=== PATIENT | female | born 1980 | race Asian ===

== ENCOUNTER 2022-07-09 22:26 | Inpatient (IN) | payer BC, MEDICAID ==
[~2022-07-09] VITALS: Ht 154.9 cm; Wt 67.6 kg
[2022-07-09 22:52] VITALS: BP_SYST 130
[2022-07-09] MEDS ORDERED: ONDANSETRON HCL 4 MG/2 ML VIAL IVP ONE (23:15)
[2022-07-09] MEDS ORDERED: NACL 0.9% 1,000 ML IV ONE (23:15)
[2022-07-09 23:31] LABS: BASOPHILS % (AUTO) 0.2 % (0.0-2.0); HEMATOCRIT 46.5 % (36-48); HEMOGLOBIN 15.2 g/dL (12.0-16.0); LYMPHOCYTES # (AUTO) 0.6 K/uL (1.0-5.5); LYMPHOCYTES % (AUTO) 3.9 % (20.5-51.5); MEAN CORPUSCULAR HEMOGLOBIN 28 pg (27-31); MEAN CORPUSCULAR HGB CONC 33 % (32-36); MEAN CORPUSCULAR VOLUME 87 fL (79.0-98.0); MONOCYTES # (AUTO) 0.4 K/uL (0.0-1.0); MONOCYTES % (AUTO) 2.7 % (1.7-9.3); NEUTROPHILS % (AUTO) 93.2 % (40.0-70.0); PLATELET COUNT (AUTO) 373 K/uL (130-430); RED BLOOD CELL COUNT(AUTO) 5.37 MIL/uL (4.2-6.2); WHITE BLOOD COUNT (AUTO) 16.1 K/uL (4.8-10.8)
[2022-07-10] VITALS (20 sets, daily range): BP systolic 99–150
[2022-07-10 00:03] LABS: CALCIUM 8.7 mg/dL (8.4-11.0); CREATININE 1.29 mg/dL (0.55-1.30)
[2022-07-10 00:08] LABS: ALBUMIN 3.9 g/dL (3.4-4.8); TOTAL BILIRUBIN 0.4 mg/dL (0.0-1.0)
[2022-07-10] MEDS ORDERED: LR 1,000 ML IV ONE ×2 (00:45)
[2022-07-10] MEDS ORDERED: INSULIN REGULAR, HUMAN 100 UNITS in NS 99 ML IV PRN ×2 (01:00)
[2022-07-10] MEDS ORDERED: DEXTROSE 50% JECT 50 ML DISP.SYRIN IVP PRN ×2 (01:00→02:00)
[2022-07-10] MEDS ORDERED: POTASSIUM CHLORIDE 40 MEQ in D5W 250 ML IV ONE (01:00)
[2022-07-10] MEDS ORDERED: cefTRIAXone 1 GM in D5W 50 ML IV ONE (01:00)
[2022-07-10 01:02] LABS: BILIRUBIN,URINE 1+ (NEGATIVE); BLOOD, URINE 1+ (NEGATIVE); CLARITY/URINE SL CLOUDY (CLEAR); COLOR,URINE YELLOW (YELLOW); GLUCOSE,URINE 3+ (NEGATIVE); KETONES,URINE 3+ (NEGATIVE); LEUKOCYTE ESTERASE ,URINE 1+ (NEGATIVE); NITRITE, URINE NEGATIVE (NEGATIVE); PH,URINE 5.5 (5.0-8.0); PROTEIN URINE NEGATIVE (NEGATIVE); UROBILINOGEN,URINE 0.2 (0.2-1.0)
[2022-07-10 01:35] LABS: BACTERIA,URINE MODERATE /HPF (None Seen); WBC,URINE 20-50 /HPF (0-3)
[2022-07-10 02:28] LABS: PHOSPHORUS 4.6 mg/dL (2.7-4.5)
[2022-07-10] MEDS ORDERED: cefTRIAXone 1 GM VIAL ONE (03:21)
[2022-07-10] MEDS ORDERED: KCL 20 mEq in 100 mL (PREMIX) 100 ML IV ONE (03:23)
[2022-07-10] MEDS: INSULIN REGULAR, HUMAN 100 UNITS in NS 99 ML IV PRN ×4 (04:32→06:52)
[2022-07-10] MEDS ORDERED: EMPA25TA PO (06:11)
[2022-07-10] MEDS ORDERED: LOSA100T4 PO (06:11)
[2022-07-10] MEDS ORDERED: NOR10 PO (06:11)
[2022-07-10] MEDS ORDERED: METO25TA3 PO (06:11)
[2022-07-10 07:17] LABS: BASOPHILS % (AUTO) 0.1 % (0.0-2.0); HEMATOCRIT 41.4 % (36-48); HEMOGLOBIN 13.6 g/dL (12.0-16.0); LYMPHOCYTES # (AUTO) 1.2 K/uL (1.0-5.5); LYMPHOCYTES % (AUTO) 8.2 % (20.5-51.5); MEAN CORPUSCULAR HEMOGLOBIN 28 pg (27-31); MEAN CORPUSCULAR HGB CONC 33 % (32-36); MEAN CORPUSCULAR VOLUME 86 fL (79.0-98.0); MONOCYTES # (AUTO) 1.1 K/uL (0.0-1.0); MONOCYTES % (AUTO) 7.3 % (1.7-9.3); NEUTROPHILS # (AUTO) 12.3 K/uL (1.8-7.7); NEUTROPHILS % (AUTO) 84.4 % (40.0-70.0); PLATELET COUNT (AUTO) 342 K/uL (130-430); RED BLOOD CELL COUNT(AUTO) 4.81 MIL/uL (4.2-6.2); RED CELL DISTRIBUTION WIDTH 13.8 % (9.0-15.0); WHITE BLOOD COUNT (AUTO) 14.5 K/uL (4.8-10.8)
[2022-07-10 07:55] LABS: ALBUMIN 3.3 g/dL (3.4-4.8); CALCIUM 7.9 mg/dL (8.4-11.0); CREATININE 0.93 mg/dL (0.55-1.30); TOTAL BILIRUBIN 0.4 mg/dL (0.0-1.0)
[2022-07-10] MEDS ORDERED: NALOXONE HCL 0.4 MG/ML AMP (NARCAN) IVP PRN ×2 (08:00)
[2022-07-10] MEDS ORDERED: DOCUSATE SODIUM 100 MG CAPSULE PO PRN (08:00)
[2022-07-10] MEDS ORDERED: MAGNESIUM SULFATE 50 ML IV PRN (08:00)
[2022-07-10] MEDS ORDERED: ZOLPIDEM TARTRATE 5 MG TABLET PO PRN (08:00)
[2022-07-10] MEDS ORDERED: MORPHINE 2 MG/ML INJ. SYRINGE IVP PRN ×2 (08:00)
[2022-07-10] MEDS ORDERED: MUPIROCIN 2% TOPICAL OINTMENT 22 GM NS PRN (08:00)
[2022-07-10] MEDS ORDERED: POTASSIUM CHLORIDE 20 MEQ TAB.PRT.SR PO PRN (08:00)
[2022-07-10] MEDS ORDERED: LORazepam 2 MG/ML VIAL IVP PRN (08:00)
[2022-07-10] MEDS: NACL 0.9% 1,000 ML IV SCH ×4 (08:15→21:18)
[2022-07-10 10:38] LABS: CALCIUM 7.7 mg/dL (8.4-11.0); CREATININE 0.87 mg/dL (0.55-1.30)
[2022-07-10] MEDS: PIPERACILLIN/TAZO 3.375/DEX-IS 50 ML IV SCH ×3 (11:20→23:51)
[2022-07-10] MEDS: ONDANSETRON HCL 4 MG/2 ML VIAL IVP PRN (15:30)
[2022-07-10 15:52] LABS: CALCIUM 7.1 mg/dL (8.4-11.0); CREATININE 0.86 mg/dL (0.55-1.30)
[2022-07-10] MEDS ORDERED: INSULIN GLARGINE 100 UNITS/ML, 10 ML VIAL SUBCUT ONE (18:00)
[2022-07-10] MEDS ORDERED: INSULIN LISPRO SLIDING SCALE 100 UNITS/ML, 3 ML VIAL (humaLOG) SUBCUT PRN (18:00)
[2022-07-10 18:40] LABS: CALCIUM 7.1 mg/dL (8.4-11.0); CREATININE 0.87 mg/dL (0.55-1.30)
[2022-07-10] MEDS: CALCIUM CARBONATE 500 MG/ TAB.CHEW PO SCH (21:18)
[2022-07-11] VITALS (22 sets, daily range): BP systolic 118–154
[2022-07-11] MEDS: NACL 0.9% 1,000 ML IV SCH ×3 (01:11→10:22)
[2022-07-11] MEDS: ONDANSETRON HCL 4 MG/2 ML VIAL IVP PRN ×2 (03:11→10:15)
[2022-07-11 05:10] LABS: HEMATOCRIT 46.3 % (36-48); HEMOGLOBIN 14.4 g/dL (12.0-16.0); LYMPHOCYTES # (AUTO) 0.8 K/uL (1.0-5.5); LYMPHOCYTES % (AUTO) 4.6 % (20.5-51.5); MEAN CORPUSCULAR HEMOGLOBIN 28 pg (27-31); MEAN CORPUSCULAR HGB CONC 31 % (32-36); MEAN CORPUSCULAR VOLUME 89 fL (79.0-98.0); MONOCYTES # (AUTO) 0.7 K/uL (0.0-1.0); MONOCYTES % (AUTO) 3.9 % (1.7-9.3); NEUTROPHILS # (AUTO) 16.9 K/uL (1.8-7.7); NEUTROPHILS % (AUTO) 91.5 % (40.0-70.0); PLATELET COUNT (AUTO) 367 K/uL (130-430); RED BLOOD CELL COUNT(AUTO) 5.18 MIL/uL (4.2-6.2); RED CELL DISTRIBUTION WIDTH 14.7 % (9.0-15.0); WHITE BLOOD COUNT (AUTO) 18.5 K/uL (4.8-10.8)
[2022-07-11] MEDS: PIPERACILLIN/TAZO 3.375/DEX-IS 50 ML IV SCH (05:29)
[2022-07-11 05:34] LABS: CALCIUM 7.4 mg/dL (8.4-11.0); CREATININE 0.92 mg/dL (0.55-1.30)
[2022-07-11] MEDS ORDERED: METOCLOPRAMIDE HCL 10 MG/2 ML VIAL IVP PRN (06:00)
[2022-07-11 07:35] LABS: PROTHROMBIN TIME 10.1 SECS (9.5-12.5)
[2022-07-11] MEDS: CALCIUM CARBONATE 500 MG/ TAB.CHEW PO SCH ×2 (09:00→22:01)
[2022-07-11] MEDS ORDERED: INSULIN GLARGINE 100 UNITS/ML, 10 ML VIAL SUBCUT SCH (09:00)
[2022-07-11 10:06] LABS: CALCIUM 7.1 mg/dL (8.4-11.0); CREATININE 1.05 mg/dL (0.55-1.30)
[2022-07-11 10:27] LABS: PHOSPHORUS 2.5 mg/dL (2.7-4.5)
[2022-07-11] MEDS ORDERED: NACL 0.9% 2,000 ML IV SCH (10:45)
[2022-07-11] MEDS ORDERED: NACL 0.9% 2,000 ML IV ONE (11:15)
[2022-07-11 13:24] LABS: ALANINE AMINOTRANSFERASE 32 U/L (12-78); ALBUMIN 3.3 g/dL (3.4-4.8); ANION GAP 30 (5-15); BILIRUBIN,DIRECT 0.1 mg/dL (0.0-0.3); CHLORIDE 114 mmol/L (98-107); CREATININE 1.02 mg/dL (0.55-1.30); GFR AFRICAN AMERICAN 77 mL/min (>90); GLUCOSE 232 mg/dL (70-99); PHOSPHORUS 2.5 mg/dL (2.7-4.5); TOTAL BILIRUBIN 0.3 mg/dL (0.0-1.0); UREA NITROGEN, BLOOD 15 mg/dL (8-21)
[2022-07-11 13:31] LABS: ASPARTATE AMINOTRANSFERASE 32 U/L (10-37)
[2022-07-11] MEDS: INSULIN REGULAR, HUMAN 100 UNITS in NS 99 ML IV PRN ×2 (13:50)
[2022-07-11 13:58] LABS: LIPASE 3251 U/L (73-393)
[2022-07-11 13:59] LABS: AMYLASE 729 U/L (0-100)
[2022-07-11] MEDS ORDERED: SODIUM BICARBONATE 8.4% JECT 50 MEQ/50 ML SYRINGE IVP ONE (14:00)
[2022-07-11] MEDS ORDERED: NACL 0.9% 1,000 ML IV ONE (14:00)
[2022-07-11] MEDS: 0.45% NACL 1,000 ML IV SCH ×3 (14:13→22:00)
[2022-07-11] MEDS: metroNIDAZOLE 500 mg/NS 100 ML IV SCH ×2 (14:17→22:03)
[2022-07-11] MEDS: ACETAMINOPHEN 325 MG TABLET PO PRN ×2 (16:44→22:06)
[2022-07-11] MEDS ORDERED: VANCOMYCIN HCL 1 GM/NS PREMIX 250 ML IV ONE (21:00)
[2022-07-11 22:15] LABS: CREATININE 1.03 mg/dL (0.55-1.30); PHOSPHORUS 2.3 mg/dL (2.7-4.5)
[2022-07-12] VITALS (34 sets, daily range): BP systolic 93–168
[2022-07-12] MEDS: 0.45% NACL 1,000 ML IV SCH ×2 (02:00→05:26)
[2022-07-12] MEDS ORDERED: LORazepam 2 MG/ML VIAL IVP ONE (02:30)
[2022-07-12] MEDS ORDERED: SODIUM BICARBONATE 8.4% JECT 50 MEQ/50 ML SYRINGE IVP ONE ×4 (02:30→15:00)
[2022-07-12] MEDS ORDERED: SODIUM BICARBONATE 8.4% JECT 50 MEQ/50 ML SYRINGE ONE ×2 (02:30→02:44)
[2022-07-12] MEDS ORDERED: fentaNYL CITRATE/PF 100 MCG/2 ML AMP IVP ONE (02:30)
[2022-07-12] MEDS ORDERED: PROPOFOL DRIP 100 ML IV ONE (02:51)
[2022-07-12 05:31] LABS: HEMATOCRIT 43.9 % (36-48); HEMOGLOBIN 13.1 g/dL (12.0-16.0); MEAN CORPUSCULAR HEMOGLOBIN 27 pg (27-31); MEAN CORPUSCULAR HGB CONC 30 % (32-36); MEAN CORPUSCULAR VOLUME 92 fL (79.0-98.0); PLATELET COUNT (AUTO) 366 K/uL (130-430); RED CELL DISTRIBUTION WIDTH 15.4 % (9.0-15.0); WHITE BLOOD COUNT (AUTO) 27.2 K/uL (4.8-10.8)
[2022-07-12 06:05] LABS: CREATININE 1.1 mg/dL (0.55-1.30); PHOSPHORUS 4.5 mg/dL (2.7-4.5)
[2022-07-12] MEDS: metroNIDAZOLE 500 mg/NS 100 ML IV SCH (06:24)
[2022-07-12] MEDS: CALCIUM CARBONATE 500 MG/ TAB.CHEW PO SCH ×2 (08:04→20:59)
[2022-07-12] MEDS: PROPOFOL DRIP 100 ML IV PRN ×3 (08:15→23:46)
[2022-07-12 09:28] LABS: BAND % (MANUAL) 14 % (0-6); BASOPHILS % (MANUAL) 0 % (0-2); EOSINOPHILS % (MANUAL) 0 % (0-7); LYMPHOCYTES % (MANUAL) 4 % (20-46); METAMYELOCYTES % 2 % (0-0); MONOCYTES % (MANUAL) 10 % (0-11)
[2022-07-12] MEDS ORDERED: ETOMIDATE 20 MG/ 10 ML VIAL (AMIDATE) IVP ONE (10:04)
[2022-07-12] MEDS ORDERED: SUCCINYLCHOLINE CHLORIDE 20 MG/ML(QUELICIN) IVP ONE (10:04)
[2022-07-12 10:27] LABS: CREATININE 1.25 mg/dL (0.55-1.30); PHOSPHORUS 3.2 mg/dL (2.7-4.5)
[2022-07-12 10:31] LABS: CALCIUM 6.6 mg/dL (8.4-11.0)
[2022-07-12] MEDS ORDERED: KCL 40 mEq in 100 mL (PREMIX) 100 ML IV ONE (10:45)
[2022-07-12] MEDS: D5/0.45 NS 1,000 ML IV SCH ×3 (11:09→20:59)
[2022-07-12] MEDS ORDERED: CALCIUM GLUCONATE 1 GM in NS 100 ML IV ONE (12:00)
[2022-07-12] MEDS: ACETAMINOPHEN 325 MG TABLET PO PRN (14:05)
[2022-07-12] MEDS ORDERED: MEROPENEM 1 GM in NS 100 ML IV ONE (15:30)
[2022-07-12] MEDS: FLUCONAZOLE 200 mg/ NS 100 ML IV SCH (16:14)
[2022-07-12] MEDS: VANCOMYCIN HCL 1,000 MG in NS 250 ML IV SCH (18:44)
[2022-07-12 19:44] LABS: CALCIUM 7.2 mg/dL (8.4-11.0); CREATININE 1.46 mg/dL (0.55-1.30)
[2022-07-12 19:53] LABS: PHOSPHORUS 0.5 mg/dL (2.7-4.5)
[2022-07-12] MEDS: INSULIN REGULAR, HUMAN 100 UNITS in NS 99 ML IV PRN ×4 (20:24→23:50)
[2022-07-12] MEDS: MEROPENEM 1 GM in NS 100 ML IV SCH (21:00)
[2022-07-12] MEDS ORDERED: K PHOS 40 MM in NS 250 ML IV ONE (21:15)
[2022-07-12] MEDS ORDERED: MEROPENEM 1 GM VIAL IV ONE (21:32)
[2022-07-12] MEDS ORDERED: POTASSIUM CHLORIDE 40 MEQ in NS 250 ML IV PRN (22:00)
[2022-07-13] VITALS (35 sets, daily range): BP systolic 85–138
[2022-07-13] MEDS: D5/0.45 NS 1,000 ML IV SCH (01:51)
[2022-07-13 06:04] LABS: ALBUMIN 2.2 g/dL (3.4-4.8); CREATININE 1.28 mg/dL (0.55-1.30); PHOSPHORUS 1.3 mg/dL (2.7-4.5); TOTAL BILIRUBIN 0.3 mg/dL (0.0-1.0)
[2022-07-13 06:25] LABS: CALCIUM 6.6 mg/dL (8.4-11.0)
[2022-07-13] MEDS: MEROPENEM 1 GM in NS 100 ML IV SCH ×3 (06:40→21:10)
[2022-07-13] MEDS: INSULIN REGULAR, HUMAN 100 UNITS in NS 99 ML IV PRN ×4 (06:43→08:49)
[2022-07-13] MEDS ORDERED: KCL 40 mEq in 100 mL (PREMIX) 100 ML IV ONE (06:45)
[2022-07-13] MEDS ORDERED: K PHOS 40 MM in NS 250 ML IV ONE ×2 (06:45→19:00)
[2022-07-13] MEDS ORDERED: CALCIUM GLUCONATE 1 GM in NS 100 ML IV ONE ×3 (06:45→18:15)
[2022-07-13 07:30] LABS: BASOPHILS % (AUTO) 0.1 % (0.0-2.0); EOSINOPHILS % (AUTO) 0.1 % (0.0-4.0); HEMATOCRIT 36.1 % (36-48); HEMOGLOBIN 11.9 g/dL (12.0-16.0); LYMPHOCYTES # (AUTO) 0.9 K/uL (1.0-5.5); LYMPHOCYTES % (AUTO) 8.4 % (20.5-51.5); MEAN CORPUSCULAR HEMOGLOBIN 28 pg (27-31); MEAN CORPUSCULAR HGB CONC 33 % (32-36); MEAN CORPUSCULAR VOLUME 85 fL (79.0-98.0); MONOCYTES # (AUTO) 1.4 K/uL (0.0-1.0); MONOCYTES % (AUTO) 12.9 % (1.7-9.3); NEUTROPHILS # (AUTO) 8.3 K/uL (1.8-7.7); PLATELET COUNT (AUTO) 243 K/uL (130-430); RED BLOOD CELL COUNT(AUTO) 4.27 MIL/uL (4.2-6.2); RED CELL DISTRIBUTION WIDTH 14.4 % (9.0-15.0); WHITE BLOOD COUNT (AUTO) 10.5 K/uL (4.8-10.8)
[2022-07-13 07:56] LABS: NEUTROPHILS % (AUTO) 78.5 % (40.0-70.0)
[2022-07-13] MEDS: KCL 40mEq in D5/0.45NS 1000 mL 1,000 ML IV SCH ×3 (08:19→23:42)
[2022-07-13] MEDS ORDERED: COMMUNICATION ORDER XX ONE (09:00)
[2022-07-13] MEDS: CALCIUM CARBONATE 500 MG/ TAB.CHEW PO SCH ×2 (09:03→20:53)
[2022-07-13 10:16] LABS: CALCIUM 7.1 mg/dL (8.4-11.0); CREATININE 1.09 mg/dL (0.55-1.30); PHOSPHORUS 1.3 mg/dL (2.7-4.5)
[2022-07-13] MEDS ORDERED: NS IV ONE (12:00)
[2022-07-13] MEDS ORDERED: K PHOS IV ONE (12:00)
[2022-07-13] MEDS: PROPOFOL DRIP 100 ML IV PRN ×3 (14:03→23:46)
[2022-07-13] MEDS: FLUCONAZOLE 200 mg/ NS 100 ML IV SCH (15:49)
[2022-07-13 17:21] LABS: CREATININE 0.93 mg/dL (0.55-1.30); PHOSPHORUS 2.7 mg/dL (2.7-4.5)
[2022-07-13 17:31] LABS: CALCIUM 6.7 mg/dL (8.4-11.0)
[2022-07-13] MEDS: VANCOMYCIN HCL 1,000 MG in NS 250 ML IV SCH (17:55)
[2022-07-14] VITALS (28 sets, daily range): BP systolic 75–126
[2022-07-14 05:44] LABS: BASOPHILS % (AUTO) 0.4 % (0.0-2.0); EOSINOPHILS % (AUTO) 0.3 % (0.0-4.0); HEMOGLOBIN 10.6 g/dL (12.0-16.0); LYMPHOCYTES # (AUTO) 1.6 K/uL (1.0-5.5); LYMPHOCYTES % (AUTO) 15.5 % (20.5-51.5); MEAN CORPUSCULAR HEMOGLOBIN 28 pg (27-31); MEAN CORPUSCULAR HGB CONC 33 % (32-36); MEAN CORPUSCULAR VOLUME 85 fL (79.0-98.0); MONOCYTES % (AUTO) 9.5 % (1.7-9.3); NEUTROPHILS # (AUTO) 7.8 K/uL (1.8-7.7); NEUTROPHILS % (AUTO) 74.3 % (40.0-70.0); PLATELET COUNT (AUTO) 174 K/uL (130-430); RED BLOOD CELL COUNT(AUTO) 3.78 MIL/uL (4.2-6.2); RED CELL DISTRIBUTION WIDTH 14.1 % (9.0-15.0); WHITE BLOOD COUNT (AUTO) 10.5 K/uL (4.8-10.8)
[2022-07-14] MEDS: MEROPENEM 1 GM in NS 100 ML IV SCH ×3 (05:53→20:58)
[2022-07-14 06:15] LABS: CREATININE 0.76 mg/dL (0.55-1.30); PHOSPHORUS 2.2 mg/dL (2.7-4.5)
[2022-07-14 06:32] LABS: CALCIUM 6.5 mg/dL (8.4-11.0)
[2022-07-14] MEDS: KCL 40mEq in D5/0.45NS 1000 mL 1,000 ML IV SCH ×4 (08:00→20:48)
[2022-07-14] MEDS: CALCIUM CARBONATE 500 MG/ TAB.CHEW PO SCH ×2 (09:00→20:57)
[2022-07-14] MEDS ORDERED: FUROSEMIDE 20 MG/2 ML VIAL IVP ONE (09:15)
[2022-07-14] MEDS: PROPOFOL DRIP 100 ML IV PRN ×4 (10:31→23:19)
[2022-07-14] MEDS: ACETAMINOPHEN 325 MG TABLET PO PRN (15:40)
[2022-07-14] MEDS: FLUCONAZOLE 200 mg/ NS 100 ML IV SCH (15:59)
[2022-07-14] MEDS ORDERED: D5W IV ONE (18:45)
[2022-07-14] MEDS ORDERED: CALCIUM GLUCONATE 1 GM in NS 100 ML IV ONE (18:45)
[2022-07-14] MEDS ORDERED: K PHOS IV ONE (18:45)
[2022-07-15] VITALS (24 sets, daily range): BP systolic 85–109
[2022-07-15] MEDS: ACETAMINOPHEN 325 MG TABLET PO PRN ×2 (00:52→12:24)
[2022-07-15 05:36] LABS: BASOPHILS % (AUTO) 0.4 % (0.0-2.0); EOSINOPHILS # (AUTO) 0.1 K/uL (0.0-0.4); EOSINOPHILS % (AUTO) 0.8 % (0.0-4.0); HEMATOCRIT 30.1 % (36-48); HEMOGLOBIN 9.9 g/dL (12.0-16.0); LYMPHOCYTES # (AUTO) 2.1 K/uL (1.0-5.5); LYMPHOCYTES % (AUTO) 18.2 % (20.5-51.5); MEAN CORPUSCULAR HEMOGLOBIN 28 pg (27-31); MEAN CORPUSCULAR HGB CONC 33 % (32-36); MEAN CORPUSCULAR VOLUME 85 fL (79.0-98.0); MONOCYTES # (AUTO) 0.8 K/uL (0.0-1.0); MONOCYTES % (AUTO) 6.9 % (1.7-9.3); NEUTROPHILS # (AUTO) 8.3 K/uL (1.8-7.7); NEUTROPHILS % (AUTO) 73.7 % (40.0-70.0); PLATELET COUNT (AUTO) 168 K/uL (130-430); RED BLOOD CELL COUNT(AUTO) 3.55 MIL/uL (4.2-6.2); RED CELL DISTRIBUTION WIDTH 13.9 % (9.0-15.0); WHITE BLOOD COUNT (AUTO) 11.3 K/uL (4.8-10.8)
[2022-07-15] MEDS: MEROPENEM 1 GM in NS 100 ML IV SCH ×3 (06:15→21:56)
[2022-07-15] MEDS: PROPOFOL DRIP 100 ML IV PRN (06:30)
[2022-07-15] MEDS: CHOLECALCIFEROL (VITAMIN D3) 5,000 UNIT TABLET GT SCH ×2 (08:41→09:00)
[2022-07-15] MEDS: CALCIUM CARBONATE 500 MG/ TAB.CHEW PO SCH ×2 (08:42→21:00)
[2022-07-15] MEDS: KCL 40mEq in D5/0.45NS 1000 mL 1,000 ML IV SCH (08:43)
[2022-07-15 10:10] LABS: ALBUMIN 1.7 g/dL (3.4-4.8); CREATININE 0.52 mg/dL (0.55-1.30); PHOSPHORUS 1.7 mg/dL (2.7-4.5); TOTAL BILIRUBIN 0.4 mg/dL (0.0-1.0)
[2022-07-15] MEDS ORDERED: FUROSEMIDE 20 MG/2 ML VIAL IVP ONE (10:15)
[2022-07-15 10:27] LABS: CALCIUM 6.7 mg/dL (8.4-11.0)
[2022-07-15] MEDS: FUROSEMIDE 20 MG/2 ML VIAL ONE ×2 (10:36→10:38)
[2022-07-15] MEDS ORDERED: CALCIUM GLUCONATE 1 GM in NS 100 ML IV ONE ×2 (12:00→19:00)
[2022-07-15] MEDS: FLUCONAZOLE 200 mg/ NS 100 ML IV SCH (12:31)
[2022-07-15] MEDS ORDERED: K PHOS 30 MM in NS 250 ML IV ONE (13:00)
[2022-07-15] MEDS: INSULIN REGULAR, HUMAN 100 UNITS in NS 99 ML IV PRN ×2 (17:53)
[2022-07-15] MEDS ORDERED: INSULIN REGULAR, HUMAN 100 UNITS in NS 99 ML IV PRN ×2 (18:45)
[2022-07-15] MEDS ORDERED: CALCIUM GLUC 1 GM/100ML-NACL 100 ML IV ONE (18:58)
[2022-07-15] MEDS ORDERED: CALCIUM GLUCONATE 1 GM/10 ML VIAL IV ONE (19:00)
[2022-07-16] VITALS (21 sets, daily range): BP systolic 93–235
[2022-07-16 04:44] LABS: BASOPHILS % (AUTO) 0.3 % (0.0-2.0); EOSINOPHILS # (AUTO) 0.3 K/uL (0.0-0.4); EOSINOPHILS % (AUTO) 2.6 % (0.0-4.0); HEMATOCRIT 31.4 % (36-48); HEMOGLOBIN 10.3 g/dL (12.0-16.0); LYMPHOCYTES # (AUTO) 2.5 K/uL (1.0-5.5); LYMPHOCYTES % (AUTO) 21.5 % (20.5-51.5); MEAN CORPUSCULAR HEMOGLOBIN 28 pg (27-31); MEAN CORPUSCULAR HGB CONC 33 % (32-36); MEAN CORPUSCULAR VOLUME 85 fL (79.0-98.0); MONOCYTES # (AUTO) 0.9 K/uL (0.0-1.0); MONOCYTES % (AUTO) 7.5 % (1.7-9.3); NEUTROPHILS # (AUTO) 7.8 K/uL (1.8-7.7); NEUTROPHILS % (AUTO) 68.1 % (40.0-70.0); PLATELET COUNT (AUTO) 207 K/uL (130-430); RED BLOOD CELL COUNT(AUTO) 3.72 MIL/uL (4.2-6.2); RED CELL DISTRIBUTION WIDTH 13.6 % (9.0-15.0); WHITE BLOOD COUNT (AUTO) 11.5 K/uL (4.8-10.8)
[2022-07-16 05:16] LABS: CALCIUM 7.1 mg/dL (8.4-11.0); CREATININE 0.55 mg/dL (0.55-1.30)
[2022-07-16] MEDS: MEROPENEM 1 GM in NS 100 ML IV SCH (06:50)
[2022-07-16] MEDS ORDERED: MAGNESIUM SULFATE/D5W 100 ML IV ONE ×2 (07:30→08:45)
[2022-07-16] MEDS ORDERED: KCL 20 mEq in 100 mL (PREMIX) 100 ML IV ONE (07:30)
[2022-07-16] MEDS ORDERED: DEXTROSE 50%-WATER 50 ML DISP.SYRIN IVP PRN (08:15)
[2022-07-16] MEDS ORDERED: D5W 1,000 ML IV PRN (08:15)
[2022-07-16] MEDS ORDERED: GLUCOSE (DEXTROSE) ORAL GEL -Adults PO PRN (08:15)
[2022-07-16] MEDS: CHOLECALCIFEROL (VITAMIN D3) 5,000 UNIT TABLET GT SCH (08:47)
[2022-07-16] MEDS: CALCIUM CARBONATE 500 MG/ TAB.CHEW PO SCH ×2 (08:47→20:33)
[2022-07-16] MEDS: INSULIN GLARGINE 100 UNITS/ML, 10 ML VIAL SUBCUT SCH ×2 (08:47→20:37)
[2022-07-16] MEDS ORDERED: K PHOS 30 MM in NS 250 ML IV ONE (11:00)
[2022-07-16] MEDS: KCL 40mEq in D5/0.45NS 1000 mL 1,000 ML IV SCH (11:35)
[2022-07-16] MEDS: INSULIN LISPRO SLIDING SCALE 100 UNITS/ML, 3 ML VIAL (humaLOG) SUBCUT PRN ×3 (14:57→20:39)
[2022-07-16] MEDS: FLUCONAZOLE 200 mg/ NS 100 ML IV SCH (15:56)
[2022-07-17] MEDS: KCL 40mEq in D5/0.45NS 1000 mL 1,000 ML IV SCH ×2 (01:07→14:13)
[2022-07-17 03:43] VITALS: BP_SYST 103
[2022-07-17] MEDS: INSULIN LISPRO SLIDING SCALE 100 UNITS/ML, 3 ML VIAL (humaLOG) SUBCUT PRN (05:58)
[2022-07-17 07:51] VITALS: BP_SYST 121
[2022-07-17] MEDS ORDERED: INSU100V9 SQ ×3 (07:53→07:58)
[2022-07-17] MEDS ORDERED: [UNRECOGNIZED DRUG - CODE] MC (07:53)
[2022-07-17] MEDS ORDERED: [UNRECOGNIZED DRUG - CODE] MC (07:53)
[2022-07-17] MEDS ORDERED: [UNRECOGNIZED DRUG - CODE] TP (07:53)
[2022-07-17 08:18] LABS: BASOPHILS % (AUTO) 0.3 % (0.0-2.0); EOSINOPHILS # (AUTO) 0.2 K/uL (0.0-0.4); EOSINOPHILS % (AUTO) 2.5 % (0.0-4.0); HEMATOCRIT 35.3 % (36-48); HEMOGLOBIN 11.6 g/dL (12.0-16.0); LYMPHOCYTES # (AUTO) 1.6 K/uL (1.0-5.5); LYMPHOCYTES % (AUTO) 20.3 % (20.5-51.5); MEAN CORPUSCULAR HEMOGLOBIN 28 pg (27-31); MEAN CORPUSCULAR HGB CONC 33 % (32-36); MEAN CORPUSCULAR VOLUME 85 fL (79.0-98.0); MONOCYTES % (AUTO) 12.1 % (1.7-9.3); NEUTROPHILS # (AUTO) 5.1 K/uL (1.8-7.7); NEUTROPHILS % (AUTO) 64.8 % (40.0-70.0); PLATELET COUNT (AUTO) 307 K/uL (130-430); RED BLOOD CELL COUNT(AUTO) 4.17 MIL/uL (4.2-6.2); RED CELL DISTRIBUTION WIDTH 13.2 % (9.0-15.0); WHITE BLOOD COUNT (AUTO) 7.9 K/uL (4.8-10.8)
[2022-07-17] MEDS: CALCIUM CARBONATE 500 MG/ TAB.CHEW PO SCH (08:39)
[2022-07-17] MEDS: CHOLECALCIFEROL (VITAMIN D3) 5,000 UNIT TABLET GT SCH (08:39)
[2022-07-17] MEDS: INSULIN GLARGINE 100 UNITS/ML, 10 ML VIAL SUBCUT SCH (08:45)
[2022-07-17 09:15] LABS: CALCIUM 8.2 mg/dL (8.4-11.0); CREATININE 0.59 mg/dL (0.55-1.30); PHOSPHORUS 3.2 mg/dL (2.7-4.5)
[2022-07-17 11:31] VITALS: BP_SYST 125
[2022-07-17] MEDS ORDERED: VITD2000 PO (13:44)
[2022-07-17 15:37] VITALS: BP_SYST 124
[2022-07-17] MEDS: FLUCONAZOLE 200 mg/ NS 100 ML IV SCH (15:42)
[2022-07-17 18:19] VITALS: BP_SYST 120
[2022-07-17] MEDS ORDERED: INSULIN GLARGINE 100 UNITS/ML, 10 ML VIAL SUBCUT SCH (21:00)
== END 2022-07-17 18:55 | disposition home or self-care (01) | DRG 871 ==
LOC: SED 22:26 → SIC 07-10 01:55 → STU 07-11 01:04 → SIC 07-11 08:38 → STU 07-17 00:24 → SMU 07-17 09:11
PROVIDERS: ADMIT General Practice; ATTEND General Practice
PROC: 05HY33Z Insertion of Infusion Device into Upper Vein, Percutaneous Approach (ICD-10-PCS; 2022-07-11)
PROC: B54NZZA Ultrasonography of Left Upper Extremity Veins, Guidance (ICD-10-PCS; 2022-07-11)
PROC: 5A1945Z Respiratory Ventilation, 24-96 Consecutive Hours (ICD-10-PCS; principal; 2022-07-12)
PROC: 0BH17EZ Insertion of Endotracheal Airway into Trachea, Via Natural or Artificial Opening (ICD-10-PCS; 2022-07-12)
DX: A41.9 Sepsis, unspecified organism (principal); E11.10 Type 2 diabetes mellitus with ketoacidosis without coma; K85.90 Acute pancreatitis without necrosis or infection, unspecified; J96.00 Acute respiratory failure, unspecified whether with hypoxia or hypercapnia; E87.0 Hyperosmolality and hypernatremia; N30.01 Acute cystitis with hematuria; N17.9 Acute kidney failure, unspecified; E83.42 Hypomagnesemia; E83.51 Hypocalcemia; Z20.822 Contact with and (suspected) exposure to COVID-19; E87.6 Hypokalemia; I10 Essential (primary) hypertension; Z79.4 Long term (current) use of insulin; Z79.84 Long term (current) use of oral hypoglycemic drugs; Z90.49 Acquired absence of other specified parts of digestive tract; Z83.3 Family history of diabetes mellitus; Z91.199 Patient's noncompliance with other medical treatment and regimen due to unspecified reason; Z79.899 Other long term (current) drug therapy
CPT/HCPCS: 36415; 36600; 71045; 76376; 80048; 80053; 80076; 81000; 82009; 82150; 82306; 82803-TC; 82962; 83037; 83605; 83690; 83735; 84100; 84478; 85007; 85025; 85027; 85610-TC; 85651-TC; 85730-TC; 87040; 87045-TC; 87046; 87070-TC; 87081; 87086; 87205-TC; 89055; 92610-GN; 93005; 94002; 94003; 94640; 94660; 94760; 97110-GP; 97116-GP; 97530-GP; 99291; C1751; J0330; J0610; J0696; J1450; J1815; J1940; J2185; J2270; J2405; J2543; J2704; J2765; J3370; J3480; J3490; J7030; J7040; J7050; J7060